=== PATIENT | female | born 1970 | race Caucasian/White ===

== ENCOUNTER 2018-08-14 17:37 | Emergency (ER) | payer SELFPAY ==
[~2018-08-14] VITALS: Ht 160 cm; Wt 109.1 kg
[2018-08-14 18:27] LABS: CLARITY,URINE SLIGHTLY CLOUDY (Clear); COLOR,URINE YELLOW (Yellow); GLUCOSE, URINE NEGATIVE (Neg); KETONES,URINE 15 mg/dl (Neg); LEUKOCYTE ESTERASE ,URINE NEGATIVE (Neg); NITRITES, URINE NEGATIVE (Neg); OCCULT BLOOD,URINE NEGATIVE (Neg); PROTEIN,URINE NEGATIVE (Neg); UA COLLECTION TYPE CLN CATCH MIDSTREAM; UROBILINOGEN,URINE 0.2 E.U/dL (0.2-1.0)
[2018-08-14 18:28] LABS: URINE HCG NEGATIVE (NEG)
[2018-08-14 18:36] LABS: MUCUS STRANDS FEW /LPF (Neg); SQUAMOUS EPITHELIAL CELL,UR MANY /LPF (FEW)
[2018-08-14 18:37] LABS: BACTERIA,URINE FEW /HPF (Neg); HYALINE CASTS 0-3 /LPF (NEGATIVE); RBC,URINE 0-2 /HPF (0-2); WBC,URINE 0-4 /HPF (0-4)
[2018-08-14 18:39] LABS: BASOPHILS % (AUTO) 0.5 % (0-1); EOSINOPHILS # (AUTO) 0.5 X10'3 (0-0.9); EOSINOPHILS % (AUTO) 5.3 % (0-6); HEMATOCRIT 41.4 % (35.0-45.0); HEMOGLOBIN 13.9 g/dl (12.0-16.0); LYMPHOCYTES # (AUTO) 1.5 X10'3 (1.1-4.8); LYMPHOCYTES % (AUTO) 17.1 % (21-51); MEAN CORPUSCULAR HEMOGLOBIN 28.4 PG (27.0-31.0); MEAN CORPUSCULAR HGB CONC 33.6 g/dL (33.0-36.5); MEAN CORPUSCULAR VOLUME 84.5 FL (78-98); MEAN PLATELET VOLUME 7.4 FL (7.4-10.4); MONOCYTES # (AUTO) 0.7 X10'3 (0-0.9); MONOCYTES % (AUTO) 7.7 % (2-12); NEUTROPHILS # (AUTO) 6.3 X10'3 (1.8-7.7); NEUTROPHILS % (AUTO) 69.4 % (42-75); PLATELET COUNT 264 X10'3 (140-440); RED BLOOD COUNT 4.89 X10'6 (4.20-5.60); RED CELL DISTRIBUTION WIDTH 13.8 % (11.5-14.5); WHITE BLOOD COUNT 9.1 X10'3 (4.5-11.0)
[2018-08-14 18:48] LABS: ALANINE AMINOTRANSFERASE 36 U/L (12-78); ALBUMIN 3.7 G/DL (3.4-5.0); ALKALINE PHOSPHATASE 89 IU/L (46-116); ANION GAP 10 (8-16); ASPARTATE AMINO TRANSFERASE 21 U/L (10-37); BILIRUBIN,TOTAL 0.3 MG/DL (0.1-1.0); BLOOD UREA NITROGEN 19 MG/DL (7-18); BUN/CREATININE RATIO 27.1 (6.6-38.0); CALCIUM 8.7 MG/DL (8.5-10.1); CHLORIDE 107 MMOL/L (99-107); GLUCOSE 89 MG/DL (70-104); SODIUM 140 MMOL/L (135-145); TOTAL CARBON DIOXIDE 23.3 MMOL/L (24-32); TOTAL PROTEIN 7.4 G/DL (6.4-8.2); eGFR 89 ML/MIN
[2018-08-14] MEDS ORDERED: ketorolac trometh. 30mg/ml inj. IV ONE (19:25)
[2018-08-14] MEDS ORDERED: normal saline 1000ML IV soln IVB ONE ×2 (19:25→20:20)
[2018-08-14] MEDS ORDERED: LORazepam 2 mg/ml vial IV ONE (19:25)
[2018-08-14] MEDS ORDERED: metoclopramide 5 mg/ml inj IV ONE (19:25)
[2018-08-14] MEDS ORDERED: diphenhydrAMINE 50 mg/ml inj IV ONE (19:25)
[2018-08-14 19:40] LABS: LIPASE 103 U/L (73-393)
[2018-08-14] MEDS ORDERED: simethicone 80mg chew tab PO ONE (20:50)
[2018-08-14] MEDS ORDERED: DICY10CA88 PO (21:33)
[2018-08-14] MEDS ORDERED: ONDA4TAB12 PO (21:33)
[2018-08-14 23:34] VITALS: BP 139/83
== END 2018-08-14 23:36 | disposition home or self-care (01) ==
LOC: ER 17:38
DX: R10.11 Right upper quadrant pain (principal); J45.909 Unspecified asthma, uncomplicated; M19.90 Unspecified osteoarthritis, unspecified site; Z88.5 Allergy status to narcotic agent
CPT/HCPCS: 36415; 74176; 76700; 80053; 81001; 81025; 83690; 85025; 85610; 96361; 96374; 96375; 99284; J1200; J1885; J2060; J2765; J7030

== ENCOUNTER 2019-07-28 08:19 | Inpatient (IN) | payer MEDICAID ==
[2019-07-23 11:02] LABS: BASOPHILS % (AUTO) 0.4 % (0-1); EOSINOPHILS # (AUTO) 0.2 X10'3 (0-0.9); EOSINOPHILS % (AUTO) 2.5 % (0-6); LYMPHOCYTES # (AUTO) 1.2 X10'3 (1.1-4.8); MEAN CORPUSCULAR HEMOGLOBIN 29.8 PG (27.0-31.0); MEAN CORPUSCULAR HGB CONC 34.1 g/dL (33.0-36.5); MEAN CORPUSCULAR VOLUME 87.3 FL (78-98); MEAN PLATELET VOLUME 8.1 FL (7.4-10.4); MONOCYTES # (AUTO) 0.7 X10'3 (0-0.9); MONOCYTES % (AUTO) 7.6 % (2-12); NEUTROPHILS # (AUTO) 7.5 X10'3 (1.8-7.7); NEUTROPHILS % (AUTO) 77.5 % (42-75); PRE OP HEMATOCRIT 45.2 % (35.0-45.0); PRE OP HEMOGLOBIN 15.4 g/dL (12.0-16.0); PRE OP PLATELET COUNT 220 X10'3 (140-440); RED BLOOD COUNT 5.18 X10'6 (4.20-5.60); RED CELL DISTRIBUTION WIDTH 14.2 % (11.5-14.5)
[2019-07-23 11:18] LABS: PRE OP PROTIME 10.5 SECONDS (9.0-12.0)
[2019-07-23 11:21] LABS: ALBUMIN 4.1 G/DL (3.4-5.0); ALBUMIN/GLOBULIN RATIO 1.1 (1.1-1.5); ALKALINE PHOSPHATASE 77 IU/L (46-116); BLOOD UREA NITROGEN 14 MG/DL (7-18); BUN/CREATININE RATIO 19.4 (6.6-38.0); CALCIUM 9.2 MG/DL (8.5-10.1); CHLORIDE 106 MMOL/L (99-107); CREATININE 0.72 MG/DL (0.40-0.90); PRE OP ALT 27 U/L (30-65); PRE OP ANION GAP 10 (8-16); PRE OP AST 21 U/L (10-37); PRE OP BILIRUB, TOTAL 0.4 MG/DL (0.0-1.0); PRE OP GLUCOSE 105 MG/DL (70-104); PRE OP POTASSIUM 3.9 MMOL/L (3.4-5.1); PRE OP SODIUM 139 MMOL/L (135-145); TOTAL PROTEIN 7.7 G/DL (6.4-8.2); eGFR 86 ML/MIN
[2019-07-28] VITALS (12 sets, daily range): BP systolic 94–131; BP diastolic 43–78
[~2019-07-28] VITALS: Ht 162.6 cm; Wt 102.1 kg
[~2019-07-28 08:19] MED LIST: FLUT1DIS20 INH; MELO15TA13 PO; TRAZ150T78 PO; VANCOMYCIN 1,500MG inj. 1,500 MG in normal saline 500ml IV soln 500 ML IV ONE; albuterol 2.5 MG/3 ML nebule NEB ONE; ceFAZolin 1000mg inj ONE; clindamycin-Cleocin 900mg/D5W 50 ML IV ONE; famotidine 20mg tablet PO ONE; ringers solution, lacted 1,000 ML IV SCH; tranexamic acid inj. 1,000 MG in normal saline 100 ML IV ONE
[2019-07-28] MEDS ORDERED: clindamycin phosphate 150mg/ml inj. ONE (10:29)
[2019-07-28] MEDS ORDERED: tetracaine 1% (10mg/ml) pres. free inj. ONE (11:15)
[2019-07-28] MEDS ORDERED: fentaNYL/PF 50MCG/1 ML 2ML syringe ONE (11:23)
[2019-07-28] MEDS ORDERED: MIDAZolam 1mg/ml 10ml vial ONE (11:23)
[2019-07-28] MEDS ORDERED: ringers solution, lacted 1,000 ML IV SCH (12:31)
[2019-07-28] MEDS ORDERED: proCHLORperazine 10 MG/2 ml inj IV PRN (12:35)
[2019-07-28] MEDS ORDERED: ROPIVAcaine 0.2% (10 MG/5 ML) BOLUS INJECTION ADDCANAL PRN (12:35)
[2019-07-28] MEDS ORDERED: morphine 2 MG/ML inj. syringe IV PRN (12:35)
[2019-07-28] MEDS ORDERED: ondansetron/PF 4mg/2ml inj IV PRN ×2 (12:35→14:15)
[2019-07-28] MEDS ORDERED: morphine 4 MG/ML inj SYRINge IV PRN (12:35)
[2019-07-28] MEDS ORDERED: diphenhydrAMINE 25mg capsule PO PRN ×2 (14:15)
[2019-07-28] MEDS ORDERED: bisacodyl 10mg suppository rectal RC PRN (14:15)
[2019-07-28] MEDS ORDERED: HYDROmorphone 1 mg/ml syringe IV PRN (14:15)
[2019-07-28] MEDS ORDERED: magnesium hydroxide 30ml (MOM) UD suspension PO PRN (14:15)
[2019-07-28] MEDS ORDERED: acetaminophen 325mg tablet PO PRN (14:15)
[2019-07-28] MEDS ORDERED: ROPIVAcaine 0.5% (5mg/ml) 30ml vial ONE (14:26)
[2019-07-28] MEDS ORDERED: propofol inj 20 ML IV ONE ×2 (14:26)
--- NOTE | 2019-07-28 14:35 | NUR ---
Received from OR via BED , accompanied by Anesthesiologist DR SALDIVAR and report given by Anesthesiolgist. PATIENT WAKING UP, DENIES PAIN, V/S WNL, NEUROVASCULAR CHECKLS INTACT, 20G PIV TO LUE, SCD ON, XOCHILT DRESSING TO RIGHT KNEE CDI W/ COLD POWDER PACK TO RIGHT KNEE . SENSATIONS AT T12
[2019-07-28] MEDS: ROPIVAcaine 0.2%/PF PUMP/bolus 550 ML ADDCANAL SCH ×2 (14:36→23:26)
[2019-07-28] MEDS: albuterol 2.5 MG/3 ML nebule NEB SCH ×2 (15:00→20:25)
--- NOTE | 2019-07-28 15:25 | NUR ---
PATIENT A&OX4, DENIES PAIN, V/S WNL, NEUROVASCULAR CHECKLS INTACT, 18G PIV TO LUE, SCD ON, XOCHILT DRESSING TO RIGHT KNEE CDI W/ COLD POWDER PACK TO RIGHT KNEE . SENSATIONS T12. PATIENT TRANSFERED TO ORTHO ROOM AND HOOKED UP TO MONITORS AND REPORT GIVEN TO AIR TUCKER WHO HAS TAKEN OVER PATIENT CARE
[2019-07-28] MEDS ORDERED: CLINDAmcin 900mg/NS 50ml IVPB 50 ML IV SCH (16:00)
[2019-07-28] MEDS ORDERED: LORazepam 2 mg/ml vial IV PRN (17:10)
[2019-07-28] MEDS: potassium Cl 20mEq in NS 1,000 ML IV SCH (17:27)
[2019-07-28] MEDS: clindamycin-Cleocin 900mg/D5W 50 ML IV SCH (17:27)
--- NOTE | 2019-07-28 18:13 | NUR ---
Report to Cinthia FONTAINE
--- NOTE | 2019-07-28 18:30 | NUR ---
Patient in room [facility]TH[facility] 4014. I have received report from ZHEN LUNDBERG and had the opportunity to ask questions and assume patient care.
[2019-07-28] MEDS: HYDROcodone/acetaminophen 10/325mg tab PO PRN ×2 (18:50→22:55)
[2019-07-28] MEDS ORDERED: non-formulary drug (Fluticasone/Salmeterol (Advair 250-50 Diskus) 1 PUFFS) INH SCH (20:00)
[2019-07-28] MEDS ORDERED: vancomycin/NS 1 GM ADD-VANTAGE 250 ML IV SCH (20:00)
[2019-07-28] MEDS: budesonide 0.5mg/2ml UD nebule IH SCH (20:25)
[2019-07-28] MEDS: traZODone 150mg tablet PO SCH (20:41)
[2019-07-28] MEDS: sennosides 8.6mg tablet PO SCH (20:41)
--- NOTE | 2019-07-28 21:00 | NUR ---
NURSING SUP SAID THEY ARE GOING TO MERGE OLD CHART AND NEW CHART INCLUDING MEDS TOMORROW. THEREFORE I RECEIVED ONE TIME ORDER FOR PT'S NIGHT MEDICATION FROM DR. WESTON. Addendum: 07/28/19 at 2321 by Cinthia Acuna RN WRONG PATIENT
[2019-07-29] MEDS: clindamycin-Cleocin 900mg/D5W 50 ML IV SCH ×2 (00:07→08:07)
[2019-07-29 01:56] VITALS: BP 113/54
[2019-07-29] MEDS: albuterol 2.5 MG/3 ML nebule NEB SCH ×4 (02:51→20:19)
[2019-07-29] MEDS: potassium Cl 20mEq in NS 1,000 ML IV SCH ×3 (03:59→21:18)
[2019-07-29] MEDS: HYDROcodone/acetaminophen 10/325mg tab PO PRN ×3 (04:58→21:50)
[2019-07-29 05:52] LABS: BASOPHILS % (AUTO) 0.3 % (0-1); EOSINOPHILS % (AUTO) 0.1 % (0-6); HEMATOCRIT 32.2 % (35.0-45.0); LYMPHOCYTES # (AUTO) 0.9 X10'3 (1.1-4.8); LYMPHOCYTES % (AUTO) 6.6 % (21-51); MEAN CORPUSCULAR HEMOGLOBIN 30.1 PG (27.0-31.0); MEAN CORPUSCULAR HGB CONC 34.2 g/dL (33.0-36.5); MEAN PLATELET VOLUME 8.1 FL (7.4-10.4); MONOCYTES # (AUTO) 1.1 X10'3 (0-0.9); MONOCYTES % (AUTO) 8.4 % (2-12); NEUTROPHILS # (AUTO) 11.1 X10'3 (1.8-7.7); NEUTROPHILS % (AUTO) 84.6 % (42-75); PLATELET COUNT 163 X10'3 (140-440); RED BLOOD COUNT 3.65 X10'6 (4.20-5.60); RED CELL DISTRIBUTION WIDTH 13.9 % (11.5-14.5); WHITE BLOOD COUNT 13.2 X10'3 (4.5-11.0)
[2019-07-29 06:00] VITALS: BP 121/59
[2019-07-29 06:07] LABS: ALANINE AMINOTRANSFERASE 20 U/L (12-78); ALBUMIN 2.6 G/DL (3.4-5.0); ALKALINE PHOSPHATASE 53 IU/L (46-116); ANION GAP 6 (8-16); ASPARTATE AMINO TRANSFERASE 14 U/L (10-37); BILIRUBIN,TOTAL 0.4 MG/DL (0.1-1.0); BLOOD UREA NITROGEN 12 MG/DL (7-18); BUN/CREATININE RATIO 15.6 (6.6-38.0); CALCIUM 7.4 MG/DL (8.5-10.1); CHLORIDE 106 MMOL/L (99-107); CREATININE 0.77 MG/DL (0.40-0.90); GLUCOSE 146 MG/DL (70-104); POTASSIUM 3.6 MMOL/L (3.5-5.1); SODIUM 138 MMOL/L (135-145); TOTAL PROTEIN 5.3 G/DL (6.4-8.2); eGFR 80 ML/MIN
--- NOTE | 2019-07-29 06:24 | NUR ---
Problems reprioritized. Patient report given, questions answered & plan of care reviewed with alicia Garcia.
[2019-07-29] MEDS ORDERED: aspirin 325mg tablet PO SCH (07:30)
[2019-07-29] MEDS: MELOXICAM 15 MG PO SCH (08:00)
[2019-07-29] MEDS ORDERED: non-formulary drug (Meloxicam (Mobic) 1 TAB) PO SCH (08:00)
[2019-07-29] MEDS: aspirin 81mg tab.chew PO SCH ×2 (08:07→13:09)
[2019-07-29] MEDS: budesonide 0.5mg/2ml UD nebule IH SCH ×2 (08:39→20:19)
[2019-07-29 10:00] VITALS: BP 141/69
[2019-07-29 14:00] VITALS: BP 139/61
[2019-07-29] MEDS ORDERED: mag hydrox/Alum hydrox/simeth 30ml oral suspension PO ONE (14:35)
--- NOTE | 2019-07-29 15:43 | NUR ---
Joint replacement consult: Pt/family seen by JAY for written/verbal high protein ed. RD reviewed high protein needs for wound healing, immune strength, high protein foods, and protein supplementation options. RD contact information provided in case of further questions. Pt declines additional proteins at this time. Will continue to monitor. Addendum: 07/29/19 at [address] Amended: Links added.
--- NOTE | 2019-07-29 17:27 | NUR ---
Paged Dr Valdez med for acid reflux
[2019-07-29] MEDS ORDERED: calcium carbonate 500mg chew tablet PO PRN (17:50)
[2019-07-29 18:00] VITALS: BP 115/58
--- NOTE | 2019-07-29 18:30 | NUR ---
Patient in room [facility]TH[facility] 4014. I have received report from ZHEN LUNDBERG and had the opportunity to ask questions and assume patient care.
[2019-07-29] MEDS: sennosides 8.6mg tablet PO SCH (21:13)
[2019-07-29] MEDS: traZODone 150mg tablet PO SCH (21:15)
[2019-07-29 22:00] VITALS: BP 146/57
[2019-07-30] MEDS: HYDROcodone/acetaminophen 10/325mg tab PO PRN ×3 (02:32→11:30)
[2019-07-30] MEDS: albuterol 2.5 MG/3 ML nebule NEB SCH ×2 (02:52→09:19)
[2019-07-30 06:03] VITALS: BP 115/59
[2019-07-30] MEDS: potassium Cl 20mEq in NS 1,000 ML IV SCH (06:13)
[2019-07-30 06:19] LABS: BASOPHILS % (AUTO) 0.1 % (0-1); EOSINOPHILS # (AUTO) 0.1 X10'3 (0-0.9); EOSINOPHILS % (AUTO) 0.5 % (0-6); HEMATOCRIT 30.4 % (35.0-45.0); HEMOGLOBIN 10.3 g/dl (12.0-16.0); LYMPHOCYTES # (AUTO) 1.4 X10'3 (1.1-4.8); LYMPHOCYTES % (AUTO) 10.6 % (21-51); MEAN CORPUSCULAR HEMOGLOBIN 29.6 PG (27.0-31.0); MEAN CORPUSCULAR HGB CONC 33.8 g/dL (33.0-36.5); MEAN CORPUSCULAR VOLUME 87.5 FL (78-98); MONOCYTES # (AUTO) 1.4 X10'3 (0-0.9); MONOCYTES % (AUTO) 10.7 % (2-12); NEUTROPHILS # (AUTO) 10.5 X10'3 (1.8-7.7); NEUTROPHILS % (AUTO) 78.1 % (42-75); PLATELET COUNT 152 X10'3 (140-440); RED BLOOD COUNT 3.47 X10'6 (4.20-5.60); RED CELL DISTRIBUTION WIDTH 14.3 % (11.5-14.5); WHITE BLOOD COUNT 13.5 X10'3 (4.5-11.0)
[2019-07-30 06:27] LABS: ALANINE AMINOTRANSFERASE 18 U/L (12-78); ALBUMIN 2.6 G/DL (3.4-5.0); ALBUMIN/GLOBULIN RATIO 0.8 (1.1-1.5); ALKALINE PHOSPHATASE 58 IU/L (46-116); ANION GAP 7 (8-16); ASPARTATE AMINO TRANSFERASE 16 U/L (10-37); BILIRUBIN,TOTAL 0.5 MG/DL (0.1-1.0); BLOOD UREA NITROGEN 6 MG/DL (7-18); BUN/CREATININE RATIO 7.7 (6.6-38.0); CALCIUM 8.1 MG/DL (8.5-10.1); CHLORIDE 104 MMOL/L (99-107); CREATININE 0.78 MG/DL (0.40-0.90); GLUCOSE 136 MG/DL (70-104); POTASSIUM 3.3 MMOL/L (3.5-5.1); SODIUM 138 MMOL/L (135-145); TOTAL CARBON DIOXIDE 26.7 MMOL/L (24-32); TOTAL PROTEIN 5.8 G/DL (6.4-8.2); eGFR 78 ML/MIN
--- NOTE | 2019-07-30 06:30 | NUR ---
Patient in room [facility]TH[facility] 4014. I have received report from Cinthia and had the opportunity to ask questions and assume patient care.
--- NOTE | 2019-07-30 06:33 | NUR ---
Problems reprioritized. Patient report given, questions answered & plan of care reviewed with ZHEN MCDOWELL.
[2019-07-30] MEDS ORDERED: pantoprazole 40mg Tablet.DR PO SCH (07:30)
[2019-07-30] MEDS: aspirin 81mg tab.chew PO SCH ×2 (07:54→12:54)
[2019-07-30] MEDS: MELOXICAM 15 MG PO SCH (08:00)
[2019-07-30] MEDS ORDERED: potassium Cl 20 mEq SR tablet PO PRN ×3 (09:15→09:20)
[2019-07-30] MEDS ORDERED: potassium CL 10mEq/100ml bag 100 ML IV PRN ×2 (09:15→09:20)
[2019-07-30] MEDS: budesonide 0.5mg/2ml UD nebule IH SCH (09:19)
[2019-07-30 10:00] VITALS: BP 122/64
[2019-07-30] MEDS: potassium Cl 20 mEq SR tablet PO PRN ×2 (10:05→14:15)
[2019-07-30 10:15] LABS: MAGNESIUM 1.8 MG/DL (1.5-2.4)
[2019-07-30] MEDS: ROPIVAcaine 0.2%/PF PUMP/bolus 550 ML ADDCANAL SCH (13:31)
--- NOTE | 2019-07-30 14:30 | NUR ---
Reviewed discharge instructions with pt. Pt verbalized understanding. Pt was wheeled downstairs to be driven home by her . Pt will be stopping by orthopaedic surgeon's office on the way home for Rx and to make a follow up appt.
== END 2019-07-30 14:50 | disposition home or self-care (01) | DRG 302 ==
LOC: UNDOADMIN 08:19 → PAS IN 08:19 → EDSTATUS 10:30 → PAS IN 14:13 → ORTHO 4S 15:30 → PAS IN 15:30
PROVIDERS: ADMIT Orthopaedic Surgery; ATTEND Orthopaedic Surgery
PROC: 0SRC0J9 Replacement of Right Knee Joint with Synthetic Substitute, Cemented, Open Approach (ICD-10-PCS; principal; 2019-07-28 11:21)
DX: M17.11 Unilateral primary osteoarthritis, right knee (principal); Z88.0 Allergy status to penicillin; Z88.6 Allergy status to analgesic agent
CPT/HCPCS: 36415; 80053; 82948; 83735; 85025; 85610; 85730; 86885; 86900; 86901; 86920; 87081; 93005; 94640; 94760; 97110; 97112; 97116; 97161; 97530; A4615; A6455; A7000; C1713; C1758; C1776; G0378; J0690; J2060; J2250; J2405; J2704; J2795; J3010; J3370; J3480; J3490; J7040; J7120; J7626